=== PATIENT | male | born 1955 | race Caucasian/White ===

== ENCOUNTER 2021-08-29 19:25 | Day surgery (SDC) | payer MEDICARE, BC ==
[2021-08-29] MEDS ORDERED: Phenylephrine 2.5% Ophth Soln 5 ML BOT FS SCH (20:15)
[2021-08-29] MEDS ORDERED: EPINEPHrine 0.3 MG in Ophthalmic Irrigation Solution 500 ML IRR SCH (20:15)
[2021-08-29] MEDS ORDERED: Cyclopentolate 1% Opth Drop 2 ML BOT FS SCH (20:15)
[2021-08-29] MEDS ORDERED: PROPOFOL 200 MG/20 ML VIAL ONE (21:20)
[2021-08-29] MEDS ORDERED: Maxitrol 0.1% Opth Oint 3.5 GM TUBE ONE (21:20)
[2021-08-29] MEDS ORDERED: CEFAZOLIN 1 GM VIAL ONE (21:20)
[2021-08-29] MEDS ORDERED: ePHEDrine 50 MG/ML VIAL ONE (21:20)
[2021-08-29] MEDS ORDERED: Triamcinolone 40 MG/ML VIAL ONE (21:20)
[2021-08-29] MEDS ORDERED: Dexamethasone 20 MG/5 ML VIAL ONE (21:20)
[2021-08-29] MEDS ORDERED: Lidocaine 4% PF 5 ML AMP ONE (21:20)
[2021-08-29] MEDS ORDERED: Bupivacaine 0.75% 10 ML VIAL ONE (21:20)
[2021-08-29] MEDS ORDERED: Ondansetron PF 4 MG/2 ML Vial ONE (21:20)
[2021-08-29] MEDS ORDERED: Lidocaine 1% PF 5 ML VIAL ONE ×2 (21:20)
[2021-08-29] MEDS ORDERED: PHENYLEPHRINE-NS 100 MCG/ML 10 ML SYRINGE ONE (21:20)
[2021-08-29] MEDS ORDERED: Phenylephrine 10 MG/ML VIAL ONE (21:41)
== END 2021-08-29 23:40 | disposition home or self-care (01) ==
LOC: SDC 19:25
PROVIDERS: ATTEND Ophthalmology Retina Specialist
PROC: 08T43ZZ Resection of Right Vitreous, Percutaneous Approach (ICD-10-PCS; principal; 2021-08-29)
DX: H33.021 Retinal detachment with multiple breaks, right eye (principal); Z88.5 Allergy status to narcotic agent; Z98.41 Cataract extraction status, right eye; Z98.42 Cataract extraction status, left eye; Z96.1 Presence of intraocular lens
CPT/HCPCS: 67025; J0171; J0690; J1100; J2370; J2405; J2704; J3301; J3490